=== PATIENT | male | born 1960 | race Caucasian/White ===

== ENCOUNTER 2017-05-20 05:09 | Outpatient (CLI) | payer MEDICARE, MEDICAID ==
[~2017-05-20 05:09] MED LIST: LISI-600 PO; TEMA30CA5 PO; VENL-191 PO
== END 2017-05-20 23:59 | disposition home or self-care (01) ==
LOC: DIABETIC 05:09
PROVIDERS: ATTEND Specialist
DX: E10.9 Type 1 diabetes mellitus without complications (principal); Z98.890 Other specified postprocedural states; Z00-Z99 Factors influencing health status and contact with health services
CPT/HCPCS: G0108

== ENCOUNTER 2017-06-25 04:06 | Outpatient (CLI) | payer MEDICARE, MEDICAID | END 2017-06-25 23:59 | disposition home or self-care (01) | LOC: DIABETIC 04:06 | PROVIDERS: ATTEND Specialist | DX: E10.9 Type 1 diabetes mellitus without complications (principal); I10 Essential (primary) hypertension | CPT/HCPCS: G0108 ==

== ENCOUNTER 2017-08-02 19:33 | Emergency (ER) | payer MEDICARE, MEDICAID ==
[~2017-08-02] VITALS: Ht 167.6 cm; Wt 78.0 kg
[2017-08-02] MEDS ORDERED: LORA0.5T PO (19:47)
[2017-08-02] MEDS ORDERED: ZOLP5TAB8 PO (19:47)
[2017-08-02] MEDS ORDERED: ARIP5TAB4 PO (19:47)
[2017-08-02] MEDS ORDERED: chlordiazePOXIDE 25mg capsule PO ONE (20:20)
[2017-08-02] MEDS ORDERED: CHLO25CA10 PO (20:34)
[2017-08-02 20:39] VITALS: BP 169/83
== END 2017-08-02 20:48 | disposition home or self-care (01) ==
LOC: ER 19:33
DX: F41.9 Anxiety disorder, unspecified (principal); F13.239 Sedative, hypnotic or anxiolytic dependence with withdrawal, unspecified; F32.9 Major depressive disorder, single episode, unspecified; G47.00 Insomnia, unspecified; E11.42 Type 2 diabetes mellitus with diabetic polyneuropathy; E78.00 Pure hypercholesterolemia, unspecified; I10 Essential (primary) hypertension; Z90.49 Acquired absence of other specified parts of digestive tract; Z98.890 Other specified postprocedural states; Z88.8 Allergy status to other drugs, medicaments and biological substances; Z79.899 Other long term (current) drug therapy
CPT/HCPCS: 82948; 99284; J7030

== ENCOUNTER 2017-08-05 02:16 | Outpatient (CLI) | payer MEDICARE, MEDICAID ==
[~2017-08-05 02:16] MED LIST changes: +ARIP5TAB4 PO; +CHLO25CA10 PO; +LORA0.5T PO; -TEMA30CA5 PO; +ZOLP5TAB8 PO
== END 2017-08-05 23:59 | disposition home or self-care (01) ==
LOC: DIABETIC 02:16
PROVIDERS: ATTEND Specialist
DX: E10.9 Type 1 diabetes mellitus without complications (principal); I10 Essential (primary) hypertension
CPT/HCPCS: G0108

== ENCOUNTER 2017-09-16 22:48 | Emergency (ER) | payer MEDICARE, MEDICAID ==
[~2017-09-16] VITALS: Ht 5535.5 cm; Wt 84.0 kg
[2017-09-16 23:46] LABS: BASOPHILS % (AUTO) 0.4 % (0-1); EOSINOPHILS # (AUTO) 0.1 X10'3 (0-0.9); EOSINOPHILS % (AUTO) 1.5 % (0-6); HEMATOCRIT 52.8 % (42.0-52.0); HEMOGLOBIN 17.5 g/dl (14.0-17.9); LYMPHOCYTES # (AUTO) 2.3 X10'3 (1.1-4.8); LYMPHOCYTES % (AUTO) 23.6 % (21-51); MEAN CORPUSCULAR HEMOGLOBIN 28.6 PG (27.0-31.0); MEAN CORPUSCULAR HGB CONC 33.1 % (33.0-36.5); MEAN CORPUSCULAR VOLUME 86.3 FL (78-98); MEAN PLATELET VOLUME 7.7 FL (7.4-10.4); MONOCYTES # (AUTO) 0.6 X10'3 (0-0.9); MONOCYTES % (AUTO) 6.2 % (2-12); NEUTROPHILS # (AUTO) 6.7 X10'3 (1.8-7.7); NEUTROPHILS % (AUTO) 68.3 % (42-75); PLATELET COUNT 261 X10'3 (140-440); RED BLOOD COUNT 6.12 X10'6 (4.70-6.10); RED CELL DISTRIBUTION WIDTH 14.6 % (11.5-14.5); WHITE BLOOD COUNT 9.8 X10'3 (4.5-11.0)
[2017-09-17 00:01] LABS: ALANINE AMINOTRANSFERASE 54 U/L (12-78); ALBUMIN 3.9 G/DL (3.4-5.0); ALBUMIN/GLOBULIN RATIO 1.1 (1.1-1.5); ALKALINE PHOSPHATASE 144 IU/L (46-116); ANION GAP 8 (8-16); ASPARTATE AMINO TRANSFERASE 21 U/L (10-37); BILIRUBIN,TOTAL 0.6 MG/DL (0.1-1.0); BLOOD UREA NITROGEN 19 MG/DL (7-18); BUN/CREATININE RATIO 13.4 (5.4-32.0); CALCIUM 8.9 MG/DL (8.5-10.1); CHLORIDE 104 MMOL/L (99-107); CREATININE 1.42 MG/DL (0.60-1.10); GLUCOSE 210 MG/DL (70-104); POTASSIUM 4.5 MMOL/L (3.5-5.1); SODIUM 140 MMOL/L (135-145); TOTAL CARBON DIOXIDE 27.9 MMOL/L (24-32); TOTAL PROTEIN 7.3 G/DL (6.4-8.2); eGFR 52 ML/MIN
[2017-09-17] MEDS ORDERED: LORA10TA7 PO (00:07)
[2017-09-17 00:10] LABS: ETHANOL < 0.010 GM/DL (0.0-0.010)
[2017-09-17 00:13] LABS: ACETAMINOPHEN < 2.0 UG/ML (10-30)
[2017-09-17 00:25] LABS: CLARITY,URINE CLEAR (Clear); COLOR,URINE YELLOW (Yellow); GLUCOSE, URINE NEGATIVE (Neg); KETONES,URINE TRACE mg/dl (Neg); LEUKOCYTE ESTERASE ,URINE NEGATIVE (Neg); NITRITES, URINE NEGATIVE (Neg); OCCULT BLOOD,URINE NEGATIVE (Neg); PH,URINE 5.5 (4.8-8.0); PROTEIN,URINE NEGATIVE (Neg); UROBILINOGEN,URINE 0.2 E.U/dL (0.2-1.0)
[2017-09-17 00:29] LABS: URINE AMPHETAMINE SCREEN NEGATIVE (Neg); URINE BARBITUATE SCREEN NEGATIVE (Neg); URINE BENZODIAZEPINES SCREEN NEGATIVE (Neg); URINE CANNABINOID SCREEN NEGATIVE (Neg); URINE COCAINE SCREEN NEGATIVE (Neg); URINE METHADONE SCREEN NEGATIVE (Neg); URINE OPIATE SCREEN NEGATIVE (Neg); URINE PHENCYCLIDINE SCREEN NEGATIVE (Neg)
[2017-09-17 00:45] LABS: UA COLLECTION TYPE CLN CATCH MIDSTREAM
[2017-09-17] MEDS ORDERED: OLANZapine 2.5MG tablet PO SCH ×2 (02:40→08:00)
[2017-09-17] MEDS ORDERED: zolpidem 5mg tablet PO PRN (06:45)
[2017-09-17] MEDS ORDERED: VENL37.589 PO (06:47)
[2017-09-17] MEDS ORDERED: lisinopril 20mg tablet PO SCH (08:00)
[2017-09-17] MEDS ORDERED: loratadine 10mg tablet PO SCH (08:00)
[2017-09-17] MEDS ORDERED: venlafaxine XR 37.5mg cap (Q24H) PO SCH (08:00)
[2017-09-17] MEDS ORDERED: cloNIDine 0.1 mg tablet PO ONE (10:15)
[2017-09-17 12:40] VITALS: BP 143/79
[2017-09-17] MEDS ORDERED: cloNIDine 0.1 mg tablet PO SCH (20:00)
== END 2017-09-17 12:00 | disposition home or self-care (01) ==
LOC: ER 22:48
DX: F41.9 Anxiety disorder, unspecified (principal); F32.9 Major depressive disorder, single episode, unspecified; R45.851 Suicidal ideations; E11.42 Type 2 diabetes mellitus with diabetic polyneuropathy; E78.00 Pure hypercholesterolemia, unspecified; I10 Essential (primary) hypertension; Z90.49 Acquired absence of other specified parts of digestive tract; Z98.890 Other specified postprocedural states; Z88.8 Allergy status to other drugs, medicaments and biological substances; Z79.899 Other long term (current) drug therapy
CPT/HCPCS: 36415; 80053; 80305; 80320; 80329; 81003; 82948; 84443; 85025; 99284

== ENCOUNTER 2017-11-11 04:20 | Outpatient (CLI) | payer MEDICARE, MEDICAID ==
[~2017-11-11 04:20] MED LIST changes: -LORA0.5T PO; +LORA10TA7 PO; -VENL-191 PO; +VENL37.589 PO
== END 2017-11-11 23:59 | disposition home or self-care (01) ==
LOC: DIABETIC 04:20
PROVIDERS: ATTEND Specialist
DX: E10.65 Type 1 diabetes mellitus with hyperglycemia (principal); Z79.4 Long term (current) use of insulin
CPT/HCPCS: G0108

== ENCOUNTER 2017-12-29 11:37 | Emergency (ER) | payer MEDICARE, MEDICAID ==
[~2017-12-29] VITALS: Ht 167.6 cm; Wt 83.0 kg
[2017-12-29 12:26] LABS: CLARITY,URINE CLEAR (Clear); COLOR,URINE STRAW (Yellow); GLUCOSE, URINE >=1000 mg/dl (Neg); KETONES,URINE TRACE mg/dl (Neg); LEUKOCYTE ESTERASE ,URINE NEGATIVE (Neg); NITRITES, URINE NEGATIVE (Neg); OCCULT BLOOD,URINE NEGATIVE (Neg); PH,URINE 5.5 (4.8-8.0); PROTEIN,URINE NEGATIVE (Neg); UROBILINOGEN,URINE 0.2 E.U/dL (0.2-1.0)
[2017-12-29 12:29] LABS: UA COLLECTION TYPE VOIDED
[2017-12-29 12:30] LABS: BASOPHILS # (AUTO) 0.1 X10'3 (0-0.2); BASOPHILS % (AUTO) 0.6 % (0-1); EOSINOPHILS # (AUTO) 0.1 X10'3 (0-0.9); EOSINOPHILS % (AUTO) 1.3 % (0-6); HEMATOCRIT 46.6 % (42.0-52.0); HEMOGLOBIN 15.7 g/dl (14.0-17.9); LYMPHOCYTES % (AUTO) 11.3 % (21-51); MEAN CORPUSCULAR HEMOGLOBIN 28.9 PG (27.0-31.0); MEAN CORPUSCULAR HGB CONC 33.8 % (33.0-36.5); MEAN CORPUSCULAR VOLUME 85.6 FL (78-98); MEAN PLATELET VOLUME 7.3 FL (7.4-10.4); MONOCYTES # (AUTO) 0.5 X10'3 (0-0.9); MONOCYTES % (AUTO) 5.4 % (2-12); NEUTROPHILS # (AUTO) 7.5 X10'3 (1.8-7.7); NEUTROPHILS % (AUTO) 81.4 % (42-75); PLATELET COUNT 280 X10'3 (140-440); RED BLOOD COUNT 5.44 X10'6 (4.70-6.10); RED CELL DISTRIBUTION WIDTH 13.8 % (11.5-14.5); WHITE BLOOD COUNT 9.2 X10'3 (4.5-11.0)
[2017-12-29 12:40] LABS: BACTERIA,URINE NONE SEEN /HPF (Neg); RBC,URINE NONE SEEN /HPF (0-2); SQUAMOUS EPITHELIAL CELL,UR FEW /LPF (FEW); WBC,URINE 0-4 /HPF (0-4)
[2017-12-29 12:41] LABS: URINE AMPHETAMINE SCREEN NEGATIVE (Neg); URINE BARBITUATE SCREEN NEGATIVE (Neg); URINE BENZODIAZEPINES SCREEN POSITIVE (Neg); URINE CANNABINOID SCREEN NEGATIVE (Neg); URINE COCAINE SCREEN NEGATIVE (Neg); URINE METHADONE SCREEN NEGATIVE (Neg); URINE OPIATE SCREEN NEGATIVE (Neg); URINE PHENCYCLIDINE SCREEN NEGATIVE (Neg)
[2017-12-29] MEDS ORDERED: FLUO20CA39 PO (12:41)
[2017-12-29] MEDS ORDERED: HYDR-3686 PO (12:41)
[2017-12-29 12:46] LABS: ALANINE AMINOTRANSFERASE 92 U/L (12-78); ALBUMIN 3.7 G/DL (3.4-5.0); ALBUMIN/GLOBULIN RATIO 1.2 (1.1-1.5); ALKALINE PHOSPHATASE 161 IU/L (46-116); ANION GAP 5 (8-16); ASPARTATE AMINO TRANSFERASE 38 U/L (10-37); BILIRUBIN,TOTAL 0.4 MG/DL (0.1-1.0); BLOOD UREA NITROGEN 32 MG/DL (7-18); BUN/CREATININE RATIO 23.4 (5.4-32.0); CALCIUM 8.6 MG/DL (8.5-10.1); CHLORIDE 100 MMOL/L (99-107); CREATININE 1.37 MG/DL (0.60-1.10); GLUCOSE 284 MG/DL (70-104); POTASSIUM 5.3 MMOL/L (3.5-5.1); SODIUM 132 MMOL/L (135-145); TOTAL PROTEIN 6.9 G/DL (6.4-8.2); eGFR 54 ML/MIN
[2017-12-29] MEDS ORDERED: MELA10TA2 PO (12:49)
[2017-12-29 12:55] LABS: ETHANOL < 0.010 GM/DL (0.0-0.010)
[2017-12-29] MEDS ORDERED: hydrOXYzine 25 MG tablet PO PRN (13:10)
[2017-12-29] MEDS ORDERED: Melatonin 3mg tablet PO PRN (13:15)
[2017-12-29] MEDS ORDERED: LORazepam 1 MG tablet PO ONE (16:45)
[2017-12-29] MEDS ORDERED: nicotine 21mg patch - 24 hr TD ONE (19:15)
[2017-12-29] MEDS ORDERED: nicotine prolacrilex 4mg gum BC PRN (19:50)
[2017-12-29] MEDS ORDERED: lisinopril 20mg tablet PO SCH (20:00)
[2017-12-29] MEDS ORDERED: nicotine prolacrilex 2mg gum BC PRN (20:08)
[2017-12-29 20:18] VITALS: BP 124/79
[2017-12-30] MEDS ORDERED: FLUoxetine 20mg capsule PO SCH (08:00)
== END 2017-12-29 23:37 | disposition home or self-care (01) ==
LOC: ER 11:38
DX: F41.9 Anxiety disorder, unspecified (principal); R45.851 Suicidal ideations; I10 Essential (primary) hypertension; E78.00 Pure hypercholesterolemia, unspecified; E11.42 Type 2 diabetes mellitus with diabetic polyneuropathy; F32.9 Major depressive disorder, single episode, unspecified; Z90.49 Acquired absence of other specified parts of digestive tract; Z98.890 Other specified postprocedural states; Z88.1 Allergy status to other antibiotic agents; Z79.899 Other long term (current) drug therapy
CPT/HCPCS: 36415; 80053; 80305; 80320; 81001; 82948; 84443; 85025; 99284; Q0177

== ENCOUNTER 2017-12-29 22:20 | Inpatient (IN) | payer MEDICARE, MEDICAID ==
[~2017-12-29] VITALS: Ht 165.1 cm; Wt 82.9 kg
[~2017-12-29 22:20] MED LIST changes: +FLUO20CA39 PO; +HYDR-3686 PO; +MELA10TA2 PO
[2017-12-30] MEDS ORDERED: acetaminophen 325mg tablet PO PRN ×2 (00:05)
[2017-12-30] MEDS ORDERED: mag hydrox/Alum hydrox/simeth 30ml oral suspension PO PRN (00:05)
[2017-12-30] MEDS ORDERED: dextrose 50%-water 50ml dispensing syringe IV ONE (02:45)
[2017-12-30 08:00] VITALS: BP 167/84
[2017-12-30] MEDS: FLUoxetine 20mg capsule PO SCH (08:03)
[2017-12-30] MEDS: lisinopril 20mg tablet PO SCH ×2 (08:03→20:26)
[2017-12-30] MEDS: hydrOXYzine 25 MG tablet PO PRN (08:23)
[2017-12-30] MEDS ORDERED: nicotine prolacrilex 4mg gum BC PRN (08:30)
[2017-12-30] MEDS ORDERED: nicotine prolacrilex 2mg gum BC PRN (08:45)
[2017-12-30] MEDS: nicotine prolacrilex 2mg gum BC PRN ×4 (09:03→18:19)
[2017-12-30 09:49] LABS: CHOLESTEROL 169 MG/DL (0-200); HDL CHOLESTEROL 42 MG/DL (35-60); LDL CHOLESTEROL 111 MG/DL (50-100); TRIGLYCERIDES 91 MG/DL (20-135)
[2017-12-30 09:53] LABS: HEMOGLOBIN A1C 7.4 % (4.5-6.2)
[2017-12-30] MEDS ORDERED: glucagon, human recombinant 1mg kit SUBCUT PRN (11:05)
[2017-12-30] MEDS ORDERED: dextrose 50%-water 50ml dispensing syringe IV PRN ×2 (11:05)
[2017-12-30] MEDS ORDERED: dextrose ORAL solution 15 GM/59 ML bottle PO PRN (11:05)
[2017-12-30] MEDS: LORazepam 0.5 MG tablet PO PRN (12:30)
[2017-12-30] MEDS ORDERED: metFORMIN 500mg tablet PO SCH (20:00)
[2017-12-30] MEDS: Melatonin 3mg tablet PO PRN (20:26)
[2017-12-30 20:39] VITALS: BP 130/75
[2017-12-31] MEDS: FLUoxetine 20mg capsule PO SCH (08:07)
[2017-12-31] MEDS: lisinopril 20mg tablet PO SCH ×2 (08:07→20:23)
[2017-12-31 08:21] VITALS: BP 162/83
[2017-12-31] MEDS: hydrOXYzine 25 MG tablet PO PRN ×2 (09:49→16:31)
[2017-12-31] MEDS: LORazepam 0.5 MG tablet PO PRN (10:39)
[2017-12-31] MEDS: nicotine prolacrilex 2mg gum BC PRN ×2 (15:37→19:11)
[2017-12-31 20:00] VITALS: BP 140/71
[2017-12-31] MEDS: Melatonin 3mg tablet PO PRN (20:24)
[2018-01-01] MEDS: hydrOXYzine 25 MG tablet PO PRN (07:41)
[2018-01-01] MEDS: venlafaxine XR 75mg capsule (Q24H) PO SCH (07:41)
[2018-01-01] MEDS: lisinopril 20mg tablet PO SCH ×2 (07:42→20:16)
[2018-01-01 08:14] VITALS: BP 138/68
[2018-01-01] MEDS: LORazepam 0.5 MG tablet PO PRN ×2 (11:18→15:51)
[2018-01-01] MEDS: nicotine prolacrilex 2mg gum BC PRN ×3 (11:30→19:23)
[2018-01-01 19:00] VITALS: BP 169/88
[2018-01-01] MEDS: Melatonin 3mg tablet PO PRN (20:17)
[2018-01-01 21:00] VITALS: BP 120/65
[2018-01-02 08:00] VITALS: BP 130/75
[2018-01-02] MEDS: venlafaxine XR 75mg capsule (Q24H) PO SCH (08:11)
[2018-01-02] MEDS: lisinopril 20mg tablet PO SCH ×2 (08:11→20:10)
[2018-01-02] MEDS: LORazepam 0.5 MG tablet PO PRN ×2 (09:45→20:10)
[2018-01-02] MEDS: nicotine prolacrilex 2mg gum BC PRN ×3 (11:02→18:29)
[2018-01-02] MEDS: hydrOXYzine 25 MG tablet PO PRN (16:09)
[2018-01-02 19:00] VITALS: BP 153/84
[2018-01-02] MEDS: Melatonin 3mg tablet PO PRN (20:10)
[2018-01-02 21:00] VITALS: BP 125/60
[2018-01-03 08:00] VITALS: BP 127/66
[2018-01-03] MEDS: venlafaxine XR 75mg capsule (Q24H) PO SCH (08:29)
[2018-01-03] MEDS: lisinopril 20mg tablet PO SCH ×2 (08:29→20:02)
[2018-01-03] MEDS: hydrOXYzine 25 MG tablet PO PRN (09:51)
[2018-01-03] MEDS: LORazepam 0.5 MG tablet PO PRN (12:46)
[2018-01-03] MEDS: nicotine prolacrilex 2mg gum BC PRN (17:28)
[2018-01-03 20:00] VITALS: BP 146/80
[2018-01-03] MEDS: Melatonin 3mg tablet PO PRN (20:02)
[2018-01-04 08:00] VITALS: BP 156/79
[2018-01-04] MEDS ORDERED: venlafaxine XR 75mg capsule (Q24H) PO SCH (08:00)
[2018-01-04] MEDS: lisinopril 20mg tablet PO SCH ×2 (08:16→20:47)
[2018-01-04] MEDS: LORazepam 0.5 MG tablet PO PRN ×2 (08:39→20:47)
[2018-01-04] MEDS: hydrOXYzine 25 MG tablet PO PRN ×2 (10:26→16:44)
[2018-01-04] MEDS ORDERED: LORazepam 0.5 MG tablet PO PRN (12:10)
[2018-01-04] MEDS: nicotine prolacrilex 2mg gum BC PRN ×2 (15:19→18:56)
[2018-01-04 20:29] VITALS: BP 137/77
[2018-01-04] MEDS: Melatonin 3mg tablet PO PRN (20:53)
[2018-01-04] MEDS ORDERED: nicotine prolacrilex 4mg gum BC PRN (21:15)
[2018-01-05 08:00] VITALS: BP 137/65
[2018-01-05] MEDS: lisinopril 20mg tablet PO SCH ×2 (08:15→20:39)
[2018-01-05] MEDS: venlafaxine XR 75mg capsule (Q24H) PO SCH (08:15)
[2018-01-05] MEDS: nicotine prolacrilex 2mg gum BC PRN ×3 (08:16→18:53)
[2018-01-05] MEDS: LORazepam 0.5 MG tablet PO PRN ×2 (09:43→20:40)
[2018-01-05] MEDS: hydrOXYzine 25 MG tablet PO PRN ×2 (10:29→16:01)
[2018-01-05 20:00] VITALS: BP 117/60
[2018-01-05] MEDS: Melatonin 3mg tablet PO PRN (20:39)
[2018-01-05] MEDS: OLANZapine 2.5MG tablet PO SCH (20:40)
[2018-01-05 22:10] VITALS: BP 117/50
[2018-01-06] MEDS: dextrose ORAL solution 15 GM/59 ML bottle PO PRN (03:48)
[2018-01-06 08:00] VITALS: BP 100/56
[2018-01-06] MEDS: venlafaxine XR 75mg capsule (Q24H) PO SCH (08:23)
[2018-01-06] MEDS: lisinopril 20mg tablet PO SCH ×2 (08:23→20:23)
[2018-01-06] MEDS: LORazepam 0.5 MG tablet PO PRN ×2 (10:53→20:23)
[2018-01-06] MEDS: hydrOXYzine 25 MG tablet PO PRN (12:55)
[2018-01-06] MEDS: insulin Lispro (HumaLOG) vial - multi-dose SQ SCH ×2 (13:13→17:58)
[2018-01-06] MEDS: nicotine prolacrilex 2mg gum BC PRN ×3 (14:05→19:23)
[2018-01-06] MEDS: magnesium hydroxide 30ml (MOM) UD suspension PO PRN (17:48)
[2018-01-06 19:54] VITALS: BP 150/84
[2018-01-06] MEDS: Melatonin 3mg tablet PO PRN (20:23)
[2018-01-06] MEDS: OLANZapine 2.5MG tablet PO SCH (20:23)
[2018-01-06 21:00] VITALS: BP 110/54
[2018-01-06] MEDS: insulin glargine (Lantus) pen - multi-dose SQ SCH (21:02)
[2018-01-07] MEDS: venlafaxine XR 75mg capsule (Q24H) PO SCH (07:41)
[2018-01-07] MEDS: lisinopril 20mg tablet PO SCH ×2 (07:41→20:47)
[2018-01-07 08:00] VITALS: BP 124/62
[2018-01-07] MEDS: LORazepam 0.5 MG tablet PO PRN ×2 (10:28→20:47)
[2018-01-07] MEDS: insulin Lispro (HumaLOG) vial - multi-dose SQ SCH ×2 (10:28→14:04)
[2018-01-07] MEDS: hydrOXYzine 25 MG tablet PO PRN (14:00)
[2018-01-07] MEDS: nicotine prolacrilex 2mg gum BC PRN ×3 (14:09→19:21)
[2018-01-07 19:00] VITALS: BP 107/64
[2018-01-07] MEDS: insulin glargine (Lantus) pen - multi-dose SQ SCH (20:45)
[2018-01-07] MEDS: OLANZapine 2.5MG tablet PO SCH (20:47)
[2018-01-07] MEDS: Melatonin 3mg tablet PO PRN (20:47)
[2018-01-08 06:39] LABS: BASOPHILS % (AUTO) 0.7 % (0-1); EOSINOPHILS # (AUTO) 0.1 X10'3 (0-0.9); EOSINOPHILS % (AUTO) 1.8 % (0-6); HEMATOCRIT 40.3 % (42.0-52.0); HEMOGLOBIN 13.8 g/dl (14.0-17.9); LYMPHOCYTES # (AUTO) 2.2 X10'3 (1.1-4.8); LYMPHOCYTES % (AUTO) 30.8 % (21-51); MEAN CORPUSCULAR HEMOGLOBIN 29.3 PG (27.0-31.0); MEAN CORPUSCULAR HGB CONC 34.1 % (33.0-36.5); MEAN CORPUSCULAR VOLUME 85.8 FL (78-98); MEAN PLATELET VOLUME 6.9 FL (7.4-10.4); MONOCYTES # (AUTO) 0.5 X10'3 (0-0.9); MONOCYTES % (AUTO) 7.2 % (2-12); NEUTROPHILS # (AUTO) 4.2 X10'3 (1.8-7.7); NEUTROPHILS % (AUTO) 59.5 % (42-75); PLATELET COUNT 206 X10'3 (140-440); RED CELL DISTRIBUTION WIDTH 13.3 % (11.5-14.5)
[2018-01-08 06:56] LABS: ALANINE AMINOTRANSFERASE 88 U/L (12-78); ALBUMIN 2.8 G/DL (3.4-5.0); ALKALINE PHOSPHATASE 108 IU/L (46-116); ANION GAP 5 (8-16); ASPARTATE AMINO TRANSFERASE 32 U/L (10-37); BILIRUBIN,TOTAL 0.6 MG/DL (0.1-1.0); BLOOD UREA NITROGEN 39 MG/DL (7-18); BUN/CREATININE RATIO 23.4 (5.4-32.0); CALCIUM 8.2 MG/DL (8.5-10.1); CHLORIDE 102 MMOL/L (99-107); CREATININE 1.67 MG/DL (0.60-1.10); GLUCOSE 284 MG/DL (70-104); MAGNESIUM 2.1 MG/DL (1.5-2.4); POTASSIUM 4.8 MMOL/L (3.5-5.1); SODIUM 136 MMOL/L (135-145); TOTAL CARBON DIOXIDE 28.8 MMOL/L (24-32); TOTAL PROTEIN 5.5 G/DL (6.4-8.2); eGFR 43 ML/MIN
[2018-01-08 08:20] VITALS: BP 126/75
[2018-01-08] MEDS: insulin Lispro (HumaLOG) vial - multi-dose SQ SCH ×3 (08:46→18:06)
[2018-01-08] MEDS: lisinopril 20mg tablet PO SCH ×2 (08:47→20:41)
[2018-01-08] MEDS: venlafaxine 37.5mg tablet PO SCH (08:48)
[2018-01-08] MEDS: venlafaxine XR 75mg capsule (Q24H) PO SCH (08:48)
[2018-01-08] MEDS: nicotine prolacrilex 2mg gum BC PRN ×3 (10:57→18:39)
[2018-01-08] MEDS: LORazepam 0.5 MG tablet PO PRN (10:57)
[2018-01-08 19:00] VITALS: BP 146/82
[2018-01-08] MEDS: insulin glargine (Lantus) pen - multi-dose SQ SCH (20:39)
[2018-01-08] MEDS: OLANZapine 2.5MG tablet PO SCH (20:41)
[2018-01-08] MEDS: Melatonin 3mg tablet PO PRN (20:41)
[2018-01-09 08:00] VITALS: BP 96/53
[2018-01-09] MEDS: venlafaxine 37.5mg tablet PO SCH (08:07)
[2018-01-09] MEDS: lisinopril 20mg tablet PO SCH ×2 (08:07→19:56)
[2018-01-09] MEDS: venlafaxine XR 75mg capsule (Q24H) PO SCH (08:07)
[2018-01-09] MEDS: insulin Lispro (HumaLOG) vial - multi-dose SQ SCH ×3 (08:56→18:01)
[2018-01-09] MEDS: LORazepam 0.5 MG tablet PO PRN (09:47)
[2018-01-09] MEDS: nicotine prolacrilex 2mg gum BC PRN ×3 (13:32→19:17)
[2018-01-09] MEDS: hydrOXYzine 25 MG tablet PO PRN (15:39)
[2018-01-09] MEDS: Melatonin 3mg tablet PO PRN (19:56)
[2018-01-09] MEDS: OLANZapine 2.5MG tablet PO SCH (19:56)
[2018-01-09 20:00] VITALS: BP 127/72
[2018-01-09] MEDS: insulin glargine (Lantus) pen - multi-dose SQ SCH (20:50)
[2018-01-10] MEDS: lisinopril 20mg tablet PO SCH ×2 (07:36→20:03)
[2018-01-10] MEDS: venlafaxine XR 75mg capsule (Q24H) PO SCH (07:36)
[2018-01-10 08:00] VITALS: BP 130/71
[2018-01-10] MEDS: insulin Lispro (HumaLOG) vial - multi-dose SQ SCH ×3 (08:33→19:07)
[2018-01-10] MEDS: LORazepam 0.5 MG tablet PO PRN (10:05)
[2018-01-10] MEDS: hydrOXYzine 25 MG tablet PO PRN (12:37)
[2018-01-10] MEDS: nicotine prolacrilex 2mg gum BC PRN ×2 (12:38→19:01)
[2018-01-10 19:55] VITALS: BP 135/76
[2018-01-10] MEDS: OLANZapine 2.5MG tablet PO SCH (20:02)
[2018-01-10] MEDS: Melatonin 3mg tablet PO PRN (20:03)
[2018-01-10] MEDS: insulin glargine (Lantus) pen - multi-dose SQ SCH (20:05)
[2018-01-11] MEDS: venlafaxine XR 75mg capsule (Q24H) PO SCH (07:49)
[2018-01-11] MEDS: lisinopril 20mg tablet PO SCH ×2 (07:49→20:17)
[2018-01-11 08:00] VITALS: BP 139/73
[2018-01-11] MEDS: insulin Lispro (HumaLOG) vial - multi-dose SQ SCH ×4 (08:47→20:16)
[2018-01-11] MEDS: LORazepam 0.5 MG tablet PO PRN (10:40)
[2018-01-11] MEDS: hydrOXYzine 25 MG tablet PO PRN (13:15)
[2018-01-11] MEDS: nicotine prolacrilex 2mg gum BC PRN ×2 (15:36→17:55)
[2018-01-11 20:00] VITALS: BP 147/84
[2018-01-11] MEDS: insulin glargine (Lantus) pen - multi-dose SQ SCH (20:11)
[2018-01-11] MEDS: OLANZapine 2.5MG tablet PO SCH (20:18)
[2018-01-11] MEDS: Melatonin 3mg tablet PO PRN (20:22)
[2018-01-12] MEDS: lisinopril 20mg tablet PO SCH ×2 (07:36→20:17)
[2018-01-12] MEDS: venlafaxine XR 75mg capsule (Q24H) PO SCH (07:36)
[2018-01-12 08:00] VITALS: BP 121/73
[2018-01-12] MEDS: insulin Lispro (HumaLOG) vial - multi-dose SQ SCH ×3 (08:32→18:04)
[2018-01-12] MEDS: LORazepam 0.5 MG tablet PO PRN (11:03)
[2018-01-12] MEDS: nicotine prolacrilex 2mg gum BC PRN ×3 (11:03→16:40)
[2018-01-12 20:00] VITALS: BP 147/85
[2018-01-12] MEDS: Melatonin 3mg tablet PO PRN (20:16)
[2018-01-12] MEDS: OLANZapine 2.5MG tablet PO SCH (20:17)
[2018-01-12] MEDS: insulin glargine (Lantus) pen - multi-dose SQ SCH (20:20)
[2018-01-13 08:00] VITALS: BP 146/72
[2018-01-13] MEDS: venlafaxine XR 75mg capsule (Q24H) PO SCH (08:08)
[2018-01-13] MEDS: lisinopril 20mg tablet PO SCH ×2 (08:10→20:22)
[2018-01-13] MEDS: insulin Lispro (HumaLOG) vial - multi-dose SQ SCH ×3 (08:54→17:56)
[2018-01-13] MEDS: LORazepam 0.5 MG tablet PO PRN (10:18)
[2018-01-13] MEDS: nicotine prolacrilex 2mg gum BC PRN ×3 (12:30→19:14)
[2018-01-13 19:51] VITALS: BP 154/86
[2018-01-13] MEDS: insulin glargine (Lantus) pen - multi-dose SQ SCH (20:21)
[2018-01-13] MEDS: OLANZapine 2.5MG tablet PO SCH (20:23)
[2018-01-13] MEDS: Melatonin 3mg tablet PO PRN (20:23)
[2018-01-13 21:00] VITALS: BP 130/70
[2018-01-14] MEDS: venlafaxine XR 75mg capsule (Q24H) PO SCH (07:49)
[2018-01-14] MEDS: lisinopril 20mg tablet PO SCH ×2 (07:49→20:21)
[2018-01-14 08:00] VITALS: BP 113/67
[2018-01-14] MEDS: insulin Lispro (HumaLOG) vial - multi-dose SQ SCH ×3 (08:41→17:44)
[2018-01-14] MEDS: LORazepam 0.5 MG tablet PO PRN (09:43)
[2018-01-14] MEDS: hydrOXYzine 25 MG tablet PO PRN (11:04)
[2018-01-14] MEDS: nicotine prolacrilex 2mg gum BC PRN ×3 (13:36→18:47)
[2018-01-14 19:00] VITALS: BP 148/81
[2018-01-14] MEDS: insulin glargine (Lantus) pen - multi-dose SQ SCH (20:18)
[2018-01-14] MEDS: OLANZapine 2.5MG tablet PO SCH (20:20)
[2018-01-14] MEDS: Melatonin 3mg tablet PO PRN (20:21)
[2018-01-14] MEDS ORDERED: OLANZapine 2.5MG tablet PO ONE (20:55)
[2018-01-14] MEDS ORDERED: OLANZapine 2.5MG tablet PO SCH (21:00)
[2018-01-15] MEDS: lisinopril 20mg tablet PO SCH ×2 (08:03→20:16)
[2018-01-15] MEDS: venlafaxine XR 75mg capsule (Q24H) PO SCH (08:03)
[2018-01-15 08:15] VITALS: BP 126/70
[2018-01-15] MEDS: insulin Lispro (HumaLOG) vial - multi-dose SQ SCH ×3 (08:36→18:00)
[2018-01-15] MEDS: LORazepam 0.5 MG tablet PO PRN (11:11)
[2018-01-15] MEDS: nicotine prolacrilex 2mg gum BC PRN ×4 (11:11→19:06)
[2018-01-15] MEDS: magnesium hydroxide 30ml (MOM) UD suspension PO PRN (14:12)
[2018-01-15 20:00] VITALS: BP 162/82
[2018-01-15] MEDS: insulin glargine (Lantus) pen - multi-dose SQ SCH (20:14)
[2018-01-15] MEDS: Melatonin 3mg tablet PO PRN (20:16)
[2018-01-15] MEDS: OLANZapine 5mg rapidly disint. tablet PO SCH (20:17)
[2018-01-15 23:19] VITALS: BP 150/90
[2018-01-16 08:00] VITALS: BP 116/70
[2018-01-16] MEDS: lisinopril 20mg tablet PO SCH ×2 (08:03→20:16)
[2018-01-16] MEDS: venlafaxine XR 75mg capsule (Q24H) PO SCH (08:04)
[2018-01-16] MEDS: insulin Lispro (HumaLOG) vial - multi-dose SQ SCH ×3 (08:59→18:52)
[2018-01-16] MEDS: LORazepam 0.5 MG tablet PO PRN (11:09)
[2018-01-16] MEDS: nicotine prolacrilex 2mg gum BC PRN ×3 (13:42→19:05)
[2018-01-16 19:35] VITALS: BP 158/89
[2018-01-16] MEDS: OLANZapine 5mg rapidly disint. tablet PO SCH (20:16)
[2018-01-16] MEDS: insulin glargine (Lantus) pen - multi-dose SQ SCH (20:29)
[2018-01-16] MEDS: Melatonin 3mg tablet PO PRN (20:30)
[2018-01-17 08:00] VITALS: BP 131/66
[2018-01-17] MEDS: venlafaxine XR 75mg capsule (Q24H) PO SCH (08:18)
[2018-01-17] MEDS: lisinopril 20mg tablet PO SCH ×2 (08:18→20:15)
[2018-01-17] MEDS: insulin Lispro (HumaLOG) vial - multi-dose SQ SCH ×3 (08:29→18:00)
[2018-01-17] MEDS: LORazepam 0.5 MG tablet PO PRN ×2 (10:13→20:15)
[2018-01-17] MEDS: nicotine prolacrilex 2mg gum BC PRN ×3 (10:13→17:14)
[2018-01-17 20:00] VITALS: BP 140/82
[2018-01-17] MEDS: Melatonin 3mg tablet PO PRN (20:15)
[2018-01-17] MEDS: OLANZapine 5mg rapidly disint. tablet PO SCH (20:16)
[2018-01-17] MEDS: insulin glargine (Lantus) pen - multi-dose SQ SCH (20:45)
[2018-01-18 08:00] VITALS: BP 125/73
[2018-01-18] MEDS: venlafaxine XR 75mg capsule (Q24H) PO SCH (08:21)
[2018-01-18] MEDS: lisinopril 20mg tablet PO SCH ×2 (08:22→20:39)
[2018-01-18] MEDS: insulin Lispro (HumaLOG) vial - multi-dose SQ SCH ×3 (08:42→19:07)
[2018-01-18] MEDS: LORazepam 0.5 MG tablet PO PRN ×2 (08:44→20:39)
[2018-01-18] MEDS: hydrOXYzine 25 MG tablet PO PRN (11:25)
[2018-01-18] MEDS: nicotine prolacrilex 2mg gum BC PRN ×2 (15:14→19:01)
[2018-01-18 19:00] VITALS: BP 143/84
[2018-01-18] MEDS: OLANZapine 5mg rapidly disint. tablet PO SCH (20:39)
[2018-01-18] MEDS: Melatonin 3mg tablet PO PRN (20:39)
[2018-01-18] MEDS: insulin glargine (Lantus) pen - multi-dose SQ SCH (20:50)
[2018-01-19 08:00] VITALS: BP 114/79
[2018-01-19] MEDS: insulin Lispro (HumaLOG) vial - multi-dose SQ SCH ×4 (08:20→20:41)
[2018-01-19] MEDS: lisinopril 20mg tablet PO SCH ×2 (08:21→20:23)
[2018-01-19] MEDS: LORazepam 0.5 MG tablet PO PRN (08:22)
[2018-01-19] MEDS: venlafaxine XR 75mg capsule (Q24H) PO SCH (08:22)
[2018-01-19] MEDS ORDERED: tuberculin, purif. prot. deriv. 5 units/0.1ml ID ONE (10:40)
[2018-01-19] MEDS: hydrOXYzine 25 MG tablet PO PRN ×2 (10:46→20:36)
[2018-01-19] MEDS: nicotine prolacrilex 2mg gum BC PRN ×3 (14:00→20:25)
[2018-01-19] MEDS: clonazePAM 1mg tablet PO SCH (14:55)
[2018-01-19 19:57] VITALS: BP 131/77
[2018-01-19] MEDS: OLANZapine 5mg rapidly disint. tablet PO SCH (20:22)
[2018-01-19] MEDS: insulin glargine (Lantus) pen - multi-dose SQ SCH (20:34)
[2018-01-20] MEDS: dextrose ORAL solution 15 GM/59 ML bottle PO PRN (07:32)
[2018-01-20 08:00] VITALS: BP 126/71
[2018-01-20] MEDS: clonazePAM 1mg tablet PO SCH ×2 (08:13→15:18)
[2018-01-20] MEDS: venlafaxine XR 75mg capsule (Q24H) PO SCH (08:14)
[2018-01-20] MEDS: lisinopril 20mg tablet PO SCH ×2 (08:14→20:17)
[2018-01-20] MEDS: insulin Lispro (HumaLOG) vial - multi-dose SQ SCH ×3 (08:37→18:24)
[2018-01-20] MEDS: nicotine prolacrilex 2mg gum BC PRN ×2 (14:18→18:31)
[2018-01-20 20:00] VITALS: BP 129/76
[2018-01-20] MEDS: hydrOXYzine 25 MG tablet PO PRN (20:17)
[2018-01-20] MEDS: OLANZapine 5mg rapidly disint. tablet PO SCH (20:18)
[2018-01-20] MEDS: insulin glargine (Lantus) pen - multi-dose SQ SCH (20:35)
[2018-01-20] MEDS ORDERED: carBAMazepine 100mg chewable tablet PO SCH (21:00)
[2018-01-21 08:28] VITALS: BP 130/77
[2018-01-21] MEDS: clonazePAM 1mg tablet PO SCH ×2 (08:37→15:13)
[2018-01-21] MEDS: lisinopril 20mg tablet PO SCH ×2 (08:37→20:46)
[2018-01-21] MEDS: venlafaxine XR 75mg capsule (Q24H) PO SCH (08:37)
[2018-01-21] MEDS: insulin Lispro (HumaLOG) vial - multi-dose SQ SCH ×3 (09:09→17:59)
[2018-01-21] MEDS: nicotine prolacrilex 2mg gum BC PRN ×2 (15:13→18:01)
[2018-01-21 19:56] VITALS: BP 121/71
[2018-01-21] MEDS: hydrOXYzine 25 MG tablet PO PRN (20:26)
[2018-01-21] MEDS: OLANZapine 5mg rapidly disint. tablet PO SCH (20:27)
[2018-01-21] MEDS: insulin glargine (Lantus) pen - multi-dose SQ SCH (20:41)
[2018-01-22] MEDS: clonazePAM 1mg tablet PO SCH ×2 (08:14→14:58)
[2018-01-22] MEDS: lisinopril 20mg tablet PO SCH ×2 (08:14→20:05)
[2018-01-22] MEDS: venlafaxine XR 75mg capsule (Q24H) PO SCH (08:15)
[2018-01-22] MEDS: carBAMazepine 100mg chewable tablet PO SCH ×2 (08:16→20:05)
[2018-01-22] MEDS: insulin Lispro (HumaLOG) vial - multi-dose SQ SCH ×3 (08:37→18:50)
[2018-01-22 09:01] VITALS: BP 127/72
[2018-01-22] MEDS: nicotine prolacrilex 2mg gum BC PRN ×2 (13:43→18:51)
[2018-01-22 19:47] VITALS: BP 135/75
[2018-01-22] MEDS: insulin glargine (Lantus) pen - multi-dose SQ SCH (20:03)
[2018-01-22] MEDS: OLANZapine 5mg rapidly disint. tablet PO SCH (20:06)
[2018-01-23 08:00] VITALS: BP 122/69
[2018-01-23] MEDS: insulin Lispro (HumaLOG) vial - multi-dose SQ SCH ×3 (08:16→18:46)
[2018-01-23] MEDS: venlafaxine XR 75mg capsule (Q24H) PO SCH (08:18)
[2018-01-23] MEDS: lisinopril 20mg tablet PO SCH ×2 (08:18→20:14)
[2018-01-23] MEDS: carBAMazepine 100mg chewable tablet PO SCH ×2 (08:18→20:14)
[2018-01-23] MEDS: clonazePAM 1mg tablet PO SCH ×2 (08:19→16:10)
[2018-01-23] MEDS: nicotine prolacrilex 2mg gum BC PRN (14:57)
[2018-01-23] MEDS: magnesium hydroxide 30ml (MOM) UD suspension PO PRN (16:10)
[2018-01-23 19:57] VITALS: BP 135/80
[2018-01-23] MEDS: insulin glargine (Lantus) pen - multi-dose SQ SCH (20:05)
[2018-01-23] MEDS: OLANZapine 5mg rapidly disint. tablet PO SCH (20:14)
[2018-01-24] MEDS: venlafaxine XR 75mg capsule (Q24H) PO SCH (07:49)
[2018-01-24] MEDS: lisinopril 20mg tablet PO SCH ×2 (07:49→19:59)
[2018-01-24] MEDS: carBAMazepine 100mg chewable tablet PO SCH ×2 (07:49→19:59)
[2018-01-24] MEDS: clonazePAM 1mg tablet PO SCH ×2 (07:50→16:17)
[2018-01-24 08:00] VITALS: BP 133/69
[2018-01-24] MEDS: insulin Lispro (HumaLOG) vial - multi-dose SQ SCH ×3 (08:59→18:37)
[2018-01-24] MEDS: insulin glargine (Lantus) pen - multi-dose SQ SCH (19:55)
[2018-01-24 19:57] VITALS: BP 142/80
[2018-01-24] MEDS: OLANZapine 5mg rapidly disint. tablet PO SCH (19:59)
[2018-01-25 08:00] VITALS: BP 123/69
[2018-01-25] MEDS: clonazePAM 1mg tablet PO SCH ×2 (08:14→16:39)
[2018-01-25] MEDS: carBAMazepine 100mg chewable tablet PO SCH ×2 (08:14→20:19)
[2018-01-25] MEDS: venlafaxine XR 75mg capsule (Q24H) PO SCH (08:14)
[2018-01-25] MEDS: lisinopril 20mg tablet PO SCH ×2 (08:15→20:19)
[2018-01-25] MEDS: insulin Lispro (HumaLOG) vial - multi-dose SQ SCH ×3 (08:45→18:22)
[2018-01-25] MEDS: hydrOXYzine 25 MG tablet PO PRN (13:42)
[2018-01-25] MEDS: nicotine prolacrilex 2mg gum BC PRN (15:52)
[2018-01-25] MEDS: insulin glargine (Lantus) pen - multi-dose SQ SCH (20:21)
[2018-01-25] MEDS: OLANZapine 5mg rapidly disint. tablet PO SCH (20:21)
[2018-01-25 20:36] VITALS: BP 130/76
[2018-01-26] MEDS ORDERED: tuberculin, purif. prot. deriv. 5 units/0.1ml ID ONE (07:50)
[2018-01-26 08:00] VITALS: BP 150/81
[2018-01-26] MEDS: clonazePAM 1mg tablet PO SCH ×2 (08:02→16:30)
[2018-01-26] MEDS: lisinopril 20mg tablet PO SCH ×2 (08:02→20:43)
[2018-01-26] MEDS: carBAMazepine 100mg chewable tablet PO SCH ×2 (08:02→20:43)
[2018-01-26] MEDS: venlafaxine XR 75mg capsule (Q24H) PO SCH (08:02)
[2018-01-26] MEDS: insulin Lispro (HumaLOG) vial - multi-dose SQ SCH ×4 (08:53→20:41)
[2018-01-26] MEDS: nicotine prolacrilex 2mg gum BC PRN ×3 (11:02→16:31)
[2018-01-26] MEDS: hydrOXYzine 25 MG tablet PO PRN (13:38)
[2018-01-26 18:52] LABS: BASOPHILS % (AUTO) 0.7 % (0-1); EOSINOPHILS # (AUTO) 0.1 X10'3 (0-0.9); EOSINOPHILS % (AUTO) 1.6 % (0-6); HEMATOCRIT 44.6 % (42.0-52.0); HEMOGLOBIN 14.9 g/dl (14.0-17.9); LYMPHOCYTES # (AUTO) 1.7 X10'3 (1.1-4.8); LYMPHOCYTES % (AUTO) 28.1 % (21-51); MEAN CORPUSCULAR HEMOGLOBIN 28.5 PG (27.0-31.0); MEAN CORPUSCULAR HGB CONC 33.4 % (33.0-36.5); MEAN CORPUSCULAR VOLUME 85.3 FL (78-98); MEAN PLATELET VOLUME 8.6 FL (7.4-10.4); MONOCYTES # (AUTO) 0.4 X10'3 (0-0.9); MONOCYTES % (AUTO) 6.8 % (2-12); NEUTROPHILS # (AUTO) 3.8 X10'3 (1.8-7.7); NEUTROPHILS % (AUTO) 62.8 % (42-75); PLATELET COUNT 211 X10'3 (140-440); RED BLOOD COUNT 5.23 X10'6 (4.70-6.10); RED CELL DISTRIBUTION WIDTH 13.5 % (11.5-14.5)
[2018-01-26 19:55] VITALS: BP 136/73
[2018-01-26] MEDS: insulin glargine (Lantus) pen - multi-dose SQ SCH (20:38)
[2018-01-26] MEDS: OLANZapine 5mg rapidly disint. tablet PO SCH (20:44)
[2018-01-27 08:00] VITALS: BP 149/79
[2018-01-27] MEDS: carBAMazepine 100mg chewable tablet PO SCH ×2 (08:10→20:12)
[2018-01-27] MEDS: lisinopril 20mg tablet PO SCH ×2 (08:11→20:13)
[2018-01-27] MEDS: venlafaxine XR 75mg capsule (Q24H) PO SCH (08:11)
[2018-01-27] MEDS: clonazePAM 1mg tablet PO SCH ×2 (08:11→16:01)
[2018-01-27] MEDS: insulin Lispro (HumaLOG) vial - multi-dose SQ SCH ×4 (08:16→20:22)
[2018-01-27] MEDS: nicotine prolacrilex 2mg gum BC PRN ×2 (16:01→17:58)
[2018-01-27 19:30] VITALS: BP 143/79
[2018-01-27] MEDS: OLANZapine 5mg rapidly disint. tablet PO SCH (20:11)
[2018-01-27] MEDS: insulin glargine (Lantus) pen - multi-dose SQ SCH (20:24)
[2018-01-28] MEDS: lisinopril 20mg tablet PO SCH ×2 (08:09→20:07)
[2018-01-28] MEDS: venlafaxine XR 75mg capsule (Q24H) PO SCH (08:09)
[2018-01-28] MEDS: carBAMazepine 100mg chewable tablet PO SCH ×2 (08:09→20:08)
[2018-01-28] MEDS: clonazePAM 1mg tablet PO SCH ×2 (08:10→17:33)
[2018-01-28] MEDS: insulin Lispro (HumaLOG) vial - multi-dose SQ SCH ×3 (08:16→17:53)
[2018-01-28] MEDS: nicotine prolacrilex 2mg gum BC PRN ×3 (08:18→16:14)
[2018-01-28 08:41] VITALS: BP 150/77
[2018-01-28 19:56] VITALS: BP 142/76
[2018-01-28] MEDS: insulin glargine (Lantus) pen - multi-dose SQ SCH (20:06)
[2018-01-28] MEDS: OLANZapine 5mg rapidly disint. tablet PO SCH (20:08)
[2018-01-29 08:00] VITALS: BP 105/72
[2018-01-29] MEDS: venlafaxine XR 75mg capsule (Q24H) PO SCH (08:33)
[2018-01-29] MEDS: carBAMazepine 100mg chewable tablet PO SCH ×2 (08:34→20:15)
[2018-01-29] MEDS: clonazePAM 1mg tablet PO SCH ×2 (08:34→16:11)
[2018-01-29] MEDS: insulin Lispro (HumaLOG) vial - multi-dose SQ SCH ×3 (09:10→18:51)
[2018-01-29] MEDS: lisinopril 20mg tablet PO SCH ×2 (09:12→20:15)
[2018-01-29] MEDS: nicotine prolacrilex 2mg gum BC PRN ×2 (13:51→16:16)
[2018-01-29 19:00] VITALS: BP 134/83
[2018-01-29] MEDS: insulin glargine (Lantus) pen - multi-dose SQ SCH (20:14)
[2018-01-29] MEDS: OLANZapine 5mg rapidly disint. tablet PO SCH (20:16)
[2018-01-30] MEDS: venlafaxine XR 75mg capsule (Q24H) PO SCH (08:07)
[2018-01-30] MEDS: clonazePAM 1mg tablet PO SCH ×2 (08:07→16:00)
[2018-01-30] MEDS: carBAMazepine 100mg chewable tablet PO SCH ×2 (08:08→20:11)
[2018-01-30] MEDS: lisinopril 20mg tablet PO SCH ×2 (08:08→20:11)
[2018-01-30 08:16] VITALS: BP 122/67
[2018-01-30] MEDS: insulin Lispro (HumaLOG) vial - multi-dose SQ SCH ×3 (08:53→18:00)
[2018-01-30] MEDS: nicotine prolacrilex 2mg gum BC PRN ×4 (10:39→18:01)
[2018-01-30 19:00] VITALS: BP 141/81
[2018-01-30] MEDS: insulin glargine (Lantus) pen - multi-dose SQ SCH (20:10)
[2018-01-30] MEDS: OLANZapine 5mg rapidly disint. tablet PO SCH (20:11)
[2018-01-31] MEDS: clonazePAM 1mg tablet PO SCH ×2 (07:40→16:29)
[2018-01-31] MEDS: lisinopril 20mg tablet PO SCH ×2 (07:40→20:22)
[2018-01-31] MEDS: carBAMazepine 100mg chewable tablet PO SCH ×2 (07:41→20:22)
[2018-01-31] MEDS: venlafaxine XR 75mg capsule (Q24H) PO SCH (07:41)
[2018-01-31 08:00] VITALS: BP 129/82
[2018-01-31] MEDS: insulin Lispro (HumaLOG) vial - multi-dose SQ SCH ×3 (08:50→17:52)
[2018-01-31] MEDS: nicotine prolacrilex 2mg gum BC PRN ×3 (10:47→16:30)
[2018-01-31 19:00] VITALS: BP 139/79
[2018-01-31] MEDS: insulin glargine (Lantus) pen - multi-dose SQ SCH (20:20)
[2018-01-31] MEDS: OLANZapine 5mg rapidly disint. tablet PO SCH (20:22)
[2018-02-01] MEDS: nicotine prolacrilex 2mg gum BC PRN ×4 (07:22→17:16)
[2018-02-01 08:00] VITALS: BP 133/74
[2018-02-01] MEDS: venlafaxine XR 75mg capsule (Q24H) PO SCH (08:12)
[2018-02-01] MEDS: clonazePAM 1mg tablet PO SCH ×2 (08:13→17:09)
[2018-02-01] MEDS: carBAMazepine 100mg chewable tablet PO SCH ×2 (08:13→20:12)
[2018-02-01] MEDS: lisinopril 20mg tablet PO SCH ×2 (08:14→20:11)
[2018-02-01] MEDS: insulin Lispro (HumaLOG) vial - multi-dose SQ SCH ×3 (08:38→18:08)
[2018-02-01 19:27] VITALS: BP 140/79
[2018-02-01] MEDS: OLANZapine 5mg rapidly disint. tablet PO SCH (20:12)
[2018-02-01] MEDS: insulin glargine (Lantus) pen - multi-dose SQ SCH (20:16)
[2018-02-02] MEDS: lisinopril 20mg tablet PO SCH ×2 (07:35→20:47)
[2018-02-02] MEDS: venlafaxine XR 75mg capsule (Q24H) PO SCH (07:35)
[2018-02-02] MEDS: clonazePAM 1mg tablet PO SCH ×2 (07:35→17:14)
[2018-02-02] MEDS: nicotine prolacrilex 2mg gum BC PRN ×4 (07:35→17:52)
[2018-02-02] MEDS: carBAMazepine 100mg chewable tablet PO SCH ×2 (07:41→20:47)
[2018-02-02 08:00] VITALS: BP 130/80
[2018-02-02] MEDS: insulin Lispro (HumaLOG) vial - multi-dose SQ SCH ×4 (08:55→20:46)
[2018-02-02 20:00] VITALS: BP 151/85
[2018-02-02] MEDS: insulin glargine (Lantus) pen - multi-dose SQ SCH (20:33)
[2018-02-02] MEDS: OLANZapine 5mg rapidly disint. tablet PO SCH (20:47)
[2018-02-03] MEDS: nicotine prolacrilex 2mg gum BC PRN ×2 (07:34→10:07)
[2018-02-03 08:00] VITALS: BP 149/80
[2018-02-03] MEDS: lisinopril 20mg tablet PO SCH (08:04)
[2018-02-03] MEDS: clonazePAM 1mg tablet PO SCH (08:04)
[2018-02-03] MEDS: venlafaxine XR 75mg capsule (Q24H) PO SCH (08:04)
[2018-02-03] MEDS ORDERED: CLON1TAB12 PO (08:17)
[2018-02-03] MEDS ORDERED: NICO2GUM29 BC (08:17)
[2018-02-03] MEDS ORDERED: OLAN5TAB29 PO (08:17)
[2018-02-03] MEDS ORDERED: CARB100T15 PO (08:17)
[2018-02-03] MEDS ORDERED: VENL225T3 PO (08:17)
[2018-02-03 08:19] LABS: BASOPHILS % (AUTO) 0.8 % (0-1); EOSINOPHILS # (AUTO) 0.1 X10'3 (0-0.9); EOSINOPHILS % (AUTO) 1.9 % (0-6); HEMATOCRIT 45.9 % (42.0-52.0); HEMOGLOBIN 15.4 g/dl (14.0-17.9); LYMPHOCYTES # (AUTO) 1.9 X10'3 (1.1-4.8); LYMPHOCYTES % (AUTO) 34.2 % (21-51); MEAN CORPUSCULAR HEMOGLOBIN 28.8 PG (27.0-31.0); MEAN CORPUSCULAR HGB CONC 33.6 % (33.0-36.5); MEAN CORPUSCULAR VOLUME 85.7 FL (78-98); MEAN PLATELET VOLUME 8.5 FL (7.4-10.4); MONOCYTES # (AUTO) 0.4 X10'3 (0-0.9); MONOCYTES % (AUTO) 7.2 % (2-12); NEUTROPHILS # (AUTO) 3.1 X10'3 (1.8-7.7); NEUTROPHILS % (AUTO) 55.9 % (42-75); PLATELET COUNT 239 X10'3 (140-440); RED BLOOD COUNT 5.36 X10'6 (4.70-6.10); RED CELL DISTRIBUTION WIDTH 13.7 % (11.5-14.5); WHITE BLOOD COUNT 5.5 X10'3 (4.5-11.0)
[2018-02-03] MEDS: insulin Lispro (HumaLOG) vial - multi-dose SQ SCH (08:48)
[2018-02-03] MEDS: carBAMazepine 100mg chewable tablet PO SCH (08:54)
== END 2018-02-03 11:15 | disposition home or self-care (01) | DRG 885 ==
LOC: ADULT MH 22:20
PROVIDERS: ADMIT Psychiatry & Neurology Psychiatry; ATTEND Psychiatry & Neurology Psychiatry
DX: F33.2 Major depressive disorder, recurrent severe without psychotic features (principal); R45.851 Suicidal ideations; F13.20 Sedative, hypnotic or anxiolytic dependence, uncomplicated; E87.1 Hypo-osmolality and hyponatremia; E87.5 Hyperkalemia; I12.9 Hypertensive chronic kidney disease with stage 1 through stage 4 chronic kidney disease, or unspecified chronic kidney disease; E11.22 Type 2 diabetes mellitus with diabetic chronic kidney disease; N18.3 Chronic kidney disease, stage 3 (moderate); F41.9 Anxiety disorder, unspecified; Z98.1 Arthrodesis status; Z79.899 Other long term (current) drug therapy; Z88.1 Allergy status to other antibiotic agents; Z88.8 Allergy status to other drugs, medicaments and biological substances
CPT/HCPCS: 36415; 80053; 80061; 80156; 82948; 83036; 83735; 85025; 87070; J1815; Q0177

== ENCOUNTER 2018-03-17 02:25 | Outpatient (CLI) | payer MEDICARE, MEDICAID ==
[~2018-03-17 02:25] MED LIST changes: -ARIP5TAB4 PO; +CARB100T15 PO; -CHLO25CA10 PO; +CLON1TAB12 PO; -FLUO20CA39 PO; -HYDR-3686 PO; -LORA10TA7 PO; -MELA10TA2 PO; +NICO2GUM29 BC; +OLAN5TAB29 PO; +VENL225T3 PO; -VENL37.589 PO; -ZOLP5TAB8 PO
== END 2018-03-17 23:59 | disposition home or self-care (01) ==
LOC: DIABETIC 02:25
PROVIDERS: ATTEND Specialist
DX: E11.65 Type 2 diabetes mellitus with hyperglycemia (principal); Z98.890 Other specified postprocedural states; Z79.4 Long term (current) use of insulin; Z79.899 Other long term (current) drug therapy; Z88.1 Allergy status to other antibiotic agents; Z88.8 Allergy status to other drugs, medicaments and biological substances
CPT/HCPCS: G0108

== ENCOUNTER 2018-06-17 00:56 | Outpatient (CLI) | payer MEDICARE, MEDICAID | END 2018-06-17 23:59 | disposition home or self-care (01) | LOC: DIABETIC 00:56 | PROVIDERS: ATTEND Specialist | DX: E10.65 Type 1 diabetes mellitus with hyperglycemia (principal); Z79.4 Long term (current) use of insulin; Z88.1 Allergy status to other antibiotic agents | CPT/HCPCS: G0108 ==

== ENCOUNTER 2018-09-23 01:07 | Outpatient (CLI) | payer MEDICARE, MEDICAID | END 2018-09-23 23:59 | disposition home or self-care (01) | LOC: DIABETIC 01:07 | PROVIDERS: ATTEND Specialist | DX: E10.65 Type 1 diabetes mellitus with hyperglycemia (principal); Z79.4 Long term (current) use of insulin; Z79.899 Other long term (current) drug therapy | CPT/HCPCS: G0108 ==

== ENCOUNTER 2018-12-29 03:12 | Outpatient (CLI) | payer MEDICARE, MEDICAID | END 2018-12-29 23:59 | disposition home or self-care (01) | LOC: DIABETIC 03:12 | PROVIDERS: ATTEND Specialist | DX: E10.65 Type 1 diabetes mellitus with hyperglycemia (principal); Z79.899 Other long term (current) drug therapy; Z79.84 Long term (current) use of oral hypoglycemic drugs; Z79.4 Long term (current) use of insulin; Z88.1 Allergy status to other antibiotic agents; Z88.8 Allergy status to other drugs, medicaments and biological substances | CPT/HCPCS: G0108 ==

== ENCOUNTER 2019-04-12 08:00 | Outpatient (CLI) | payer MEDICARE, MEDICAID | END 2019-04-12 23:59 | disposition home or self-care (01) | LOC: DIABETIC 08:00 | PROVIDERS: ATTEND Specialist | DX: E10.65 Type 1 diabetes mellitus with hyperglycemia (principal); Z79.4 Long term (current) use of insulin; Z79.899 Other long term (current) drug therapy; Z88.1 Allergy status to other antibiotic agents; Z88.8 Allergy status to other drugs, medicaments and biological substances | CPT/HCPCS: G0108 ==

== ENCOUNTER 2019-07-12 04:05 | Outpatient (CLI) | payer MEDICARE, MEDICAID | END 2019-07-12 23:59 | disposition home or self-care (01) | LOC: DIABETIC 04:05 | PROVIDERS: ATTEND Specialist | DX: Z00.00 Encounter for general adult medical examination without abnormal findings (principal); E11.9 Type 2 diabetes mellitus without complications | CPT/HCPCS: G0108 ==